=== PATIENT | female | born 1970 | race Caucasian/White ===

== ENCOUNTER 2023-08-19 09:10 | Outpatient (CLI) | payer BC, SELFPAY ==
[2023-08-19 17:00] LABS: Alanine Aminotransferase 21 U/L (6-35); Albumin Level 4.2 g/dL (3.5-5.1); Alkaline Phosphatase 88 U/L (38-126); Anion Gap 3 mmol/L (8-16); Aspartate Amino Transferase 29 U/L (14-36); Bilirubin,Total 0.5 mg/dL (0.2-1.3); Blood Urea Nitrogen 15 mg/dL (7-17); CRP < 0.5 mg/dL (<1.0); Calcium 9.4 mg/dL (8.4-10.2); Carbon Dioxide 31 mmol/L (22-30); Chloride 105 mmol/L (98-107); Cholesterol 279 mg/dL (0-200); Estimated Glomerular Filt Rate > 60; Glucose 90 mg/dL (65-110); HDL Direct 51 mg/dL; Potassium 4.3 mmol/L (3.4-5.0); Sodium 139 mmol/L (137-145); Triglycerides 138 mg/dL (<150)
[2023-08-19 17:09] LABS: LDL Cholesterol Direct 160 mg/dL
[2023-08-19 18:08] LABS: Erythrocyte Sedimentation Rate 15 mm/hr (0-20); Hemoglobin A1C 5.6 % (<5.7)
[2023-08-19 18:27] LABS: Rheumatoid Factor < 12.0 IU/ML (<12)
[2023-08-24 21:02] LABS: Anti Cyclic Citrullinated Pept <16 Units (<20)
== END 2023-08-19 09:11 | disposition home or self-care (01) ==
LOC: ANHGOSHLAB 09:12
PROVIDERS: PCP Emergency Medicine; Visit Provider Emergency Medicine
DX: E78.5 Hyperlipidemia, unspecified (principal); M25.50 Pain in unspecified joint; R73.03 Prediabetes
CPT/HCPCS: 36415; 80053; 80061; 83036; 85652; 86038; 86140; 86200; 86430

== ENCOUNTER 2023-12-26 13:37 | Outpatient (CLI) | payer BC, SELFPAY ==
--- NOTE | ~2023-12-26 | MM_ITS ---
EXAMINATION: MM screening [place] BI w anirudh HISTORY: Screening TECHNIQUE: Craniocaudal and mediolateral oblique 3-D tomosynthesis images were obtained and synthetic 2-D images were generated. CAD analysis was submitted and interpreted. COMPARISON: Comparison to multiple prior studies sequentially, with oldest reviewed study dated 08/30. BREAST PARENCHYMAL COMPOSITION: The breasts are heterogeneously dense, which may obscure small masses . FINDINGS: There is no evidence of suspicious mass, calcification, or architectural distortion to sugg est malignancy in either breast. There has been no suspicious interval change. IMPRESSION: 1. No mammographic evidence of malignancy. 2. Recommend routine screening mammography in one year. BI-RADS Category 1: Negative Reviewed, dictated and finalized at location A. FORMER OPERATOR
== END 2023-12-26 13:38 | disposition home or self-care (01) ==
LOC: ANHIMG 13:40
PROVIDERS: PCP Emergency Medicine; Visit Provider Emergency Medicine
DX: Z12.31 Encounter for screening mammogram for malignant neoplasm of breast (principal)
CPT/HCPCS: 77063; 77067

== ENCOUNTER 2024-09-25 10:15 | Outpatient (CLI) | payer BC, SELFPAY ==
[2024-09-25 20:11] LABS: Basophils Absolute Auto 0.1 K/mm3 (0.0-0.1); Basophils Percent Auto 1.1 % (0.2-1.2); Eosinophils Absolute Auto 0.1 K/mm3 (0-0.3); Eosinophils Percent Auto 2.3 % (0-4.4); Hematocrit 42.2 % (37.0-47.0); Immature Granulocyte Absolute 0.02 K/mm3 (0.00-0.031); Immature Granulocyte Percent A 0.4 % (0-0.5); Lymphocytes Absolute Auto 1.74 K/mm3 (0.9-3.2); Lymphocytes Percent Auto 33.3 % (18.3-44.2); Mean Corpuscular HGB Conc 30.8 g/dl (32-36); Mean Corpuscular Hemoglobin 27.7 pg (26-34); Mean Platelet Volume 9.8 fl (7.4-10.4); Monocytes Absolute Auto 0.4 K/mm3 (0.1-0.6); Monocytes Percent Auto 8.2 % (2.6-8.5); Neutrophils Absolute Auto 2.9 K/mm3 (1.3-6.7); Neutrophils Percent Auto 54.7 % (45.5-73.1); Platelet Count Result 344 k/mm3 (150-375); Red Blood Count 4.69 M/mm3 (4.2-5.4); White Blood Count 5.2 K/mm3 (4.5-10.0)
[2024-09-25 20:38] LABS: Alanine Aminotransferase 34 U/L (6-35); Albumin Level 4.4 g/dL (3.5-5.1); Alkaline Phosphatase 101 U/L (38-126); Anion Gap 8 mmol/L (4-12); Aspartate Amino Transferase 30 U/L (14-36); Bilirubin,Total 0.4 mg/dL (0.2-1.3); Blood Urea Nitrogen 14 mg/dL (7-17); Calcium 9.7 mg/dL (8.4-10.2); Carbon Dioxide 29 mmol/L (22-30); Chloride 105 mmol/L (98-107); Cholesterol 273 mg/dL (0-200); Estimated Glomerular Filt Rate > 60; Glucose 93 mg/dL (65-110); HDL Direct 59 mg/dL; Potassium 4.6 mmol/L (3.4-5.0); Sodium 142 mmol/L (137-145); Triglycerides 150 mg/dL (<150)
[2024-09-25 20:48] LABS: LDL Cholesterol Direct 152 mg/dL
== END 2024-09-25 10:16 | disposition home or self-care (01) ==
LOC: ANHGOSHLAB 10:17
PROVIDERS: PCP Emergency Medicine; Visit Provider Emergency Medicine
DX: E78.5 Hyperlipidemia, unspecified (principal); M25.541 Pain in joints of right hand; M25.542 Pain in joints of left hand
CPT/HCPCS: 36415; 80053; 80061; 85025

== ENCOUNTER 2024-09-28 09:18 | Outpatient (CLI) | payer BC, SELFPAY ==
[2024-09-28 14:22] LABS: Basophils Absolute Auto 0.1 K/mm3 (0.0-0.1); Basophils Percent Auto 0.9 % (0.2-1.2); Eosinophils Absolute Auto 0.1 K/mm3 (0-0.3); Eosinophils Percent Auto 2.5 % (0-4.4); Hematocrit 41.5 % (37.0-47.0); Immature Granulocyte Absolute 0.01 K/mm3 (0.00-0.031); Immature Granulocyte Percent A 0.2 % (0-0.5); Lymphocytes Absolute Auto 1.64 K/mm3 (0.9-3.2); Lymphocytes Percent Auto 29.4 % (18.3-44.2); Mean Corpuscular HGB Conc 31.3 g/dl (32-36); Mean Corpuscular Hemoglobin 28.3 pg (26-34); Mean Corpuscular Volume 90.2 fl (80-100); Mean Platelet Volume 9.9 fl (7.4-10.4); Monocytes Absolute Auto 0.4 K/mm3 (0.1-0.6); Monocytes Percent Auto 7.4 % (2.6-8.5); Neutrophils Absolute Auto 3.3 K/mm3 (1.3-6.7); Neutrophils Percent Auto 59.6 % (45.5-73.1); Platelet Count Result 334 k/mm3 (150-375); Red Cell Distribution Width 12.9 % (11.5-14.5); White Blood Count 5.6 K/mm3 (4.5-10.0)
[2024-09-28 14:54] LABS: Erythrocyte Sedimentation Rate 14 mm/hr (0-20)
[2024-09-28 15:08] LABS: Alanine Aminotransferase 24 U/L (6-35); Albumin Level 4.3 g/dL (3.5-5.1); Alkaline Phosphatase 105 U/L (38-126); Anion Gap 8 mmol/L (4-12); Aspartate Amino Transferase 36 U/L (14-36); Bilirubin,Total 0.3 mg/dL (0.2-1.3); Blood Urea Nitrogen 16 mg/dL (7-17); CRP < 0.5 mg/dL (<1.0); Calcium 9.6 mg/dL (8.4-10.2); Carbon Dioxide 28 mmol/L (22-30); Chloride 105 mmol/L (98-107); Estimated Glomerular Filt Rate > 60; Glucose 89 mg/dL (65-110); Potassium 4.6 mmol/L (3.4-5.0); Sodium 141 mmol/L (137-145)
[2024-09-28 15:11] LABS: Rheumatoid Factor < 12.0 IU/ML (<12)
[2024-10-01 18:08] LABS: HLA B27 NEGATIVE (NEGATIVE)
[2024-10-02 15:14] LABS: Cyclic Citrullinated Peptide <16 UNITS
== END 2024-09-28 09:19 | disposition home or self-care (01) ==
LOC: ANHGOSHLAB 09:22
PROVIDERS: PCP Emergency Medicine
DX: M06.4 Inflammatory polyarthropathy (principal)
CPT/HCPCS: 36415; 80053; 85025; 85652; 86038; 86039; 86140; 86200; 86225; 86430; 86812

== ENCOUNTER 2025-02-25 14:07 | Outpatient (CLI) | payer BC, SELFPAY ==
--- NOTE | ~2025-02-25 | MM_ITS ---
EXAMINATION: MM screening [place] BI w anirudh HISTORY: Screening mammogram TECHNIQUE: Craniocaudal and mediolateral oblique 3-D tomosynthesis images were obtained and synthetic 2-D images were generated. CAD analysis was submitted and interpreted. COMPARISON: 12/26/2023, 09/27/2022 BREAST PARENCHYMAL COMPOSITION:Not Dense. There are scattered areas of fibroglandular density. FINDINGS: Mass in the posterior, lower left breast is present with biopsy clip. No suspicious mass, c alcification, or architectural distortion are identified in either breast to suggest malignancy. Ther e has been no suspicious interval change. IMPRESSION: No mammographic evidence of malignancy. Recommend routine screening mammography in one year. BI-RADS Category 2: Benign finding(s). Reviewed, dictated and finalized at location .
--- OUTSIDE RECORDS SUMMARY | 2025-02-25 15:34 | XMS_ITS ---
Author Organization [place] [facility]. Address [address] [address] Care Team Providers Care Well Service Floor Worker Name Role Phone Cassandra JO, Karma Primary Care Provider Unavail MAGY Carpenter Unavailable [phone] Encounters Encounter Location Date Provider Diagnosis [facility] [address] [address] 12/09/2023 MAGY SANTACRUZ Plan Of Treatment No Information Progress Notes * TITUS DALEYDOB:1970 (54 yo F)Acc No.[id number]:12/09/2023 Patient: TITUS CALLES :1970 A ge:53 Y S ex:Female Address:[address] [facility] [place], [address] * * Date:
--- OUTSIDE RECORDS SUMMARY | 2025-02-25 15:34 | XMS_ITS | Patient Health Record ---
Author Organization [facility]. Address [address] [address] Care Team Providers Care Yarder Name Role Phone Cassandra JO, Karma Primary Care Provider Unavail able NEETA MAGY Unavailable [phone] Allergies No Known Allergies Reason For Referral No Information Medications Medication SIG (Take, Route, Frequency, Duration) Notes Start Date End Date Status Benadryl Allergy 25 MG 1 tablet at bedti me as needed Orally Once a day Active Tizanidine 2 mg one orally 1 at nigh t and as needed for 30 days Active Multivitamin - 1 tablet Orally Once a day Active Meloxicam 15 MG 1 tablet Oral Once a day Active Vitamin D3 125 MCG (5000 UT) 1 tablet Orally QOD Active Social History Tobacco Use: Social History Observation Description Date Details (start date - stop date) Never Smoker NA - NA Tobacco Use/Smoking Question Answer Notes Are you a nonsmoker Section Notes: h/o alcohol abuse, 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, 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, 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 Problems Problem Type SNOMED Code ICD Code Onset Dates Problem Status W/U Status Risk Notes Problem Paresthesia (78707197) Paresthesia (R20.2) Active confirmed Problem 632878183297 Anesthesia of skin (R20.0) Active confirmed Problem 89774601 Paresthesia of skin (R20.2) Active confirmed Problem 637478629 Imbalance (R26.89) Active confirmed Problem 18011768 Tremor (R25.1) Active confirmed Problem 800957046 Cervical spondylitis (M46.92) Active confirmed Problem 623889868 Cervical radicular pain (M54.12) Active confirmed Problem 01173578 Action tremor (G25.2) Active confirmed Problem Cervical arthritis (742969913) Cervical arthritis (M46.92) Active confirmed Plan Of Treatment Pending Test Test Name Order Date TSH, 3RD GENERATION W/REFLEX TO FT4 11/29 TSH, 3RD GENERATION W/REFLEX TO FT4 07/30 SED RATE BY MODIFIED TREYERGREN 08/21/20 VITAMIN B12 08/21/2022 VITAMIN B12 12/22/2022 physical therapy eval & tx 08/21/2022 CBC (INCLUDES DIFF/PLT) 12/22/2022 MRI Brain with and without contrast 07/30 MRI Cervical Spine wo contrast COMPREHENSIVE METABOLIC PANEL 12/22/2022 Insurance Providers Payer Name Payer Address Payer Phone Subscriber Number Group Number Insured Name Patient Relationship to Insured Coverage Start Date Coverage End Date Z DO NOT USE [employer] [address] [place] [address] [phone] [id number] DALEY Spouse - patient is the spouse of the insured Medical (General) History Surgical History Surgery Date(Month/Year) meniscus repair 08/2022
--- OUTSIDE RECORDS SUMMARY | 2025-02-25 15:34 | XMS_ITS | Patient Health Record ---
Author Organization [facility] Address [address] [place] [address] [address] [place] [address] Support Name Relationship Address Phone Ronel Walker Guarantor Unknown Unavailable Allergies No Known Allergies Reason For Referral No Information Medications Medication SIG (Take, Route, Frequency, Duration) Notes Start Date End Date Status Daily Value Multivitamin Oral 05/11/2022 Active Rosuvastatin Calcium 10 MG Oral 05/11/2022 Active [facility] Omeprazole Magnesium 20 MG Oral 05/11/2022 Active Slo Fe Oral *Reorder from Posterous for eRx and Interaction Alerts* 05/11/2022 Active Meloxicam 15 MG Oral 05/11/2022 Act neema Benadryl Allergy 25 MG Oral 05/11/2022 Active Plan Of Treatment No Information Insurance Providers Payer Name Payer Address Payer Phone Subscriber Number Group Number Insured Name Patient Relationship to Insured Coverage Start Date Coverage End Date Advoc [id number] [employer] [address] [place] [address] [id number] Yi Walker Other
== END 2025-02-25 14:08 | disposition home or self-care (01) ==
LOC: ANHIMG 14:09
PROVIDERS: PCP Nurse Practitioner Family; Visit Provider Family Medicine
DX: Z12.31 Encounter for screening mammogram for malignant neoplasm of breast (principal)
CPT/HCPCS: 77063; 77067

== ENCOUNTER 2025-08-29 08:07 | Outpatient (CLI) | payer BC, SELFPAY ==
[2025-08-29 13:01] LABS: Hematocrit 39.3 % (37.0-47.0); Hemoglobin 12.3 g/dL (12.0-15.0); Immature Granulocyte Percent A 0.2 % (0-0.5); Lymphocytes Absolute Auto 1.17 K/mm3 (0.9-3.2); Mean Corpuscular HGB Conc 31.3 g/dl (32-36); Mean Corpuscular Hemoglobin 30.8 pg (26-34); Mean Corpuscular Volume 98.5 fl (80-100); Nucleated Red Blood Cells Absolute Auto 0.000 K/mm3 (0.0-0.012); Nucleated Red Blood Cells Perc 0.0 % (0.0-0.2); Platelet Count Result 374 k/mm3 (150-375); Red Blood Count 3.99 M/mm3 (4.2-5.4); White Blood Count 4.4 K/mm3 (4.5-10.0)
[2025-08-29 13:13] LABS: Alanine Aminotransferase 34 U/L (6-35); Albumin Level 4.3 g/dL (3.5-5.1); Alkaline Phosphatase 83 U/L (38-126); Anion Gap 8 mmol/L (4-12); Aspartate Amino Transferase 45 U/L (14-36); Bilirubin,Total 0.2 mg/dL (0.2-1.3); Blood Urea Nitrogen 19 mg/dL (7-17); Calcium 9.5 mg/dL (8.4-10.2); Carbon Dioxide 27 mmol/L (22-30); Chloride 105 mmol/L (98-107); Cholesterol 293 mg/dL (0-200); Estimated Glomerular Filt Rate > 60; Glucose 79 mg/dL (65-110); HDL Direct 58 mg/dL; Potassium 4.0 mmol/L (3.4-5.0); Sodium 140 mmol/L (137-145); Total Protein 7.2 g/dL (6.3-8.2); Triglycerides 90 mg/dL (<150)
[2025-08-29 13:18] LABS: Add Urine Microscopic? YES; Appearance Urine Clear (Clear); Glucose Urine UA Negative (Negative); Iron 59 ug/dL (37-170); Leukocyte Esterase Ur 2+ LEU/UL (Negative); Need Manual Microscopic Reviewed; Nitrate Urine Negative (Negative); Non Pathogenic Casts 0-2; Specific Grav Ur 1.019 (1.001-1.035)
[2025-08-29 13:36] LABS: Percent Iron Saturation 23 % (20-50)
[2025-08-29 14:00] LABS: Thyroid Stimulating Hormone Reflex 2.400 uIU/mL (0.465-4.68)
[2025-08-29 14:11] LABS: Ferritin 71.00 ng/mL (11.1-264)
[2025-08-29 14:29] LABS: Vitamin B12 651.0 pg/mL (239-931)
[2025-08-29 17:55] LABS: Hemoglobin A1C 5.9 % (<5.7)
== END 2025-08-29 08:08 | disposition home or self-care (01) ==
LOC: ANHGOSHLAB 08:08
PROVIDERS: PCP Nurse Practitioner Family; Visit Provider Nurse Practitioner Family
DX: M06.00 Rheumatoid arthritis without rheumatoid factor, unspecified site (principal); E66.3 Overweight; Z13.1 Encounter for screening for diabetes mellitus; Z79.899 Other long term (current) drug therapy; R53.83 Other fatigue; Z13.220 Encounter for screening for lipoid disorders; E61.1 Iron deficiency; Z13.29 Encounter for screening for other suspected endocrine disorder; E53.8 Deficiency of other specified B group vitamins
CPT/HCPCS: 36415; 80053; 80061; 81001; 82306; 82607; 82728; 82746; 83036; 83540; 83550; 84443; 85025

== ENCOUNTER 2025-10-16 08:43 | Outpatient (CLI) | payer BC, SELFPAY ==
[2025-11-05 12:58] VITALS: BMI 26.9
--- NOTE | 2025-11-05 12:58 | WPDHOMESLEEP ---
Sleep Study - Home Unattended Date of Study: 10/16/25 Ordering Provider: Kurt Arias MD Interpreting Provider: Mansi Torres DO Home Sleep Study Type: Watch PAT Height: 1.68 m Weight: 75.75 kg Body Mass Index: 26.9 Neck Circumference (inches): 14.5 [place]: 1 Reason for Sleep Study Excessive daytime sleepiness Sleep History The patient is a 55-year-old female that had a sleep study ordered by her primary care physician for evaluation of sleep apnea. The patient admits to excessive daytime sleepiness. She denies snoring loudly. She denies having interruptions in breathing while asleep. She denies choking or gasping at night. She denies having trouble breathing on her back. She denies morning headaches. She denies having a dry or sore mouth / throat in the morning. She denies nocturnal heartburn. She denies nocturia. She does have difficulty falling and staying asleep. She does have difficulty returning to sleep if she wakes up throughout the night. She denies any hypnotic or sedative use. She denies feeling anxious about sleep. She does feel tired or sleepy during the day. She does feel tired in the morning. She denies having the urge to fall asleep during the day. She denies feeling drowsy while driving. She denies sleep paralysis, cataplexy and hypnagogic/ hypnopompic hallucinations. She does clench or grind her teeth. She denies kicking or jerking her legs excessively. She denies having a restless feeling in her legs. She goes to bed at 10:00 p.m. on work days and at 11:00 p.m. on her days off. It takes her 2 hours to fall asleep. She gets 5 hours of sleep per night. Her sleep is somewhat restorative on her days off. She denies taking any planned naps. She denies dream enactment behavior. She denies sleep walking. She consumes 3-4 cups of caffeinated beverage per day. She denies tobacco and alcohol use. She exercises 3-4 nights per week. [facility] Past Medical History Medical History Localized swelling of left foot Degenerative joint disease of right knee Encounter to establish care [facility] use of drug Encounter for annual routine gynecological examination Insomnia Motion sickness Arthralgia of hands, bilateral Joint pain Right knee meniscal tear Inflammatory polyarthropathy Breast cancer screening Screening mammogram for breast cancer Surgical History Surgical History H/O lateral meniscus repair of right knee Family History Family History Father Pulmonary embolism Social History Social History Smoking status: Former smoker Tobacco type: cigarettes Alcohol intake: never Substance use: never Current Housing: Decline to Answer Concerned About Future Housing: Decline to Answer Difficulty Paying Gas/Electric Bills: Decline to Answer Difficulty Paying for Meds: Decline to Answer Currently Unemployed: Decline to Answer Education: Decline to Answer Difficulty w/ Childcare or Family Care: Decline to Answer Medications Home Medications ?Medication ?Instructions ?Recorded ?Confirmed ?Type hydroxychloroquine 200 mg tablet 200 mg PO BID 10/23/25 10/23/25 History (Plaquenil) tizanidine 2 mg capsule 2 mg PO TID PRN 10/23/25 10/23/25 History Sleep Procedure The sleep study was completed using [employer] a technically adequate device with seven channels: peripheral arterial tone, actigraphy, body position, snore, respiratory movement, pulse oximetry, sleep staging, and heart rate. Prior to using the device, the patient received verbal and written instructions for its application and was provided with the help desk phone number for additional telephonic instruction with 24-hour availability of qualified personnel to answer questions. The study was scored using CMS guidelines. Sleep Architecture The total recording time is 8 hrs, 7 min. The total sleep time is 7 hrs, 3 min. Sleep latency is 17 minutes. REM latency is 121 minutes. The patient had 9 episodes of waking. Sleep architecture shows 6.7% deep sleep, 74.5% light sleep, and (as % Total Sleep Time) showed NREM (Light 74.5%; Deep 6.7%), and a 18.8% stage REM. The patient spent 55.9% of total sleep time in the supine position. Sleep efficiency was 86.86. Respiratory Analysis The overall AHI (pAHI 4%:) is 2.9. The overall AHI (pAHI 3%:) is 4.3. The central AHI is 0.2. The AHI was 4.4 in NREM and 3.8 in REM sleep. The AHI was 5.6 in Supine and 2.4 in Non-supine sleep. Percent of [place] respirations is 0.0. Oximetry Data The oxygen desaturation index (FRANKLIN 4%:) is 1.3. The mean saturation is 94%, and the lowest saturation is 87%. Time spent with saturation < 88% is 0.0 minutes. Snoring Profile Snoring average intensity is 40 dB. The patient snored above 45 decibels for 6.0 minutes, 1.4% of sleep time. Cardiac Profile The average pulse rate is 81 beats per minutes. The lowest pulse rate is 66 bpm. The highest pulse rate reported is 126 bpm. Atrial fibrillation was not detected. Premature beats occur <0.1 per minute. Assessment and Plan Assessment and Plan (1) Sleep disturbances: Code(s): G47.9 - Sleep disorder, unspecified Status: Acute Assessment and Plan: The patient had an overall AHI of 2.9 with desaturation down to 87%. This is not consistent with sleep-disordered breathing. If there are further concerns for a sleep disorder, I recommend that the patient have a split study with the use of a hypnotic to ensure we obtain enough sleep data. Data The data obtained during this sleep study is adequate for interpretation. Certification This sleep study has been reviewed by a board certified sleep medicine physician.
== END 2025-10-17 13:52 | disposition home or self-care (01) ==
PROVIDERS: PCP Nurse Practitioner Family; Visit Provider Family Medicine
DX: G47.10 Hypersomnia, unspecified (principal); G47.9 Sleep disorder, unspecified
CPT/HCPCS: 95800

== ENCOUNTER 2025-10-18 07:58 | Outpatient (CLI) | payer BC, SELFPAY ==
--- OUTSIDE RECORDS SUMMARY | 2025-10-18 08:01 | XMS_ITS | Patient Health Record ---
Author Organization [facility] Address [address] [place] [address] [address] [place] [address] Support Name Relationship Address Phone Ronel Walker Guarantor Unknown Unavailable Allergies No Known Allergies Reason For Referral No Information Medications Medication SIG (Take, Route, Frequency, Duration) Notes Start Date End Date Status Daily Value Multivitamin Oral 05/11/2022 Active Rosuvastatin Calcium 10 MG Oral 05/11/2022 Active [facility] Omeprazole Magnesium 20 MG Oral 05/11/2022 Active Slo Fe Oral *Reorder from Opiatalk for eRx and Interaction Alerts* 05/11/2022 Active Meloxicam 15 MG Oral 05/11/2022 Act neema Benadryl Allergy 25 MG Oral 05/11/2022 Active Plan Of Treatment No Information Insurance Providers Payer Name Payer Address Payer Phone Subscriber Number Group Number Insured Name Patient Relationship to Insured Coverage Start Date Coverage End Date Advoc [id number] [employer] [id number] [place] [address] [id number] Yi Walker Other
[2025-10-18 12:21] LABS: Hepatitis B Surface Antigen Negative (Negative)
[2025-10-18 12:26] LABS: HAV RESULT Negative (Negative); Hepatitis B Core IgM Result Negative (Negative)
[2025-10-18 12:45] LABS: Hepatitis B Surface Anti Res Positive
[2025-10-19 13:08] LABS: Anti-CCP Ab, IgG/IgA 7 units (0-19)
[2025-10-22 15:09] LABS: ANA by IFA Rfx Titer/Pattern Negative (.)
== END 2025-10-18 07:59 | disposition home or self-care (01) ==
PROVIDERS: Internal Medicine; PCP Nurse Practitioner Family; Visit Provider Nurse Practitioner Family
DX: R76.0 Raised antibody titer (principal)
CPT/HCPCS: 36415; 80074; 86038; 86200; 86430; 86480; 86706

== ENCOUNTER 2025-10-18 08:21 | Outpatient (CLI) | payer BC, SELFPAY ==
--- NOTE | ~2025-10-18 | XR_ITS ---
EXAMINATION: XR knee RT min 4V, 10/18/2025 8:38 PASTRY SOUS CHEF HISTORY: Pain in right knee, meniscus surgery 2021, rheumatoid a COMPARISON: No comparisons available. Findings: No acute fracture or malalignment. Moderate tricompartmental degenerative changes Soft tissues unremarkable. Impression: No acute fracture or malalignment. Reviewed, dictated and finalized at location P. RY SOUS CHEF Impression: No acute fracture or malalignment.
== END 2025-10-18 08:22 | disposition home or self-care (01) ==
LOC: GOSHIMG 08:22
PROVIDERS: PCP Nurse Practitioner Family; Visit Provider Nurse Practitioner Family
DX: M25.561 Pain in right knee (principal)
CPT/HCPCS: 73564

== ENCOUNTER 2025-10-18 08:23 | Outpatient (CLI) | payer BC, SELFPAY ==
--- NOTE | ~2025-10-18 | XR_ITS ---
EXAMINATION: XR sacroiliac joints min 3V, 10/18/2025 8:38 CORPORATE CONCIERGE HISTORY: raised antibody titer, looking for RA COMPARISON: No comparisons available. Findings: No acute fracture or malalignment. No significant sclerosis, no erosions or bridging osteophyte formation Soft tissues unremarkable. Impression: No acute fracture or malalignment. Reviewed, dictated and finalized at location P. ORATE CONCIERGE Impression: No acute fracture or malalignment.
--- NOTE | ~2025-10-18 | XR_ITS ---
XR_CERV2-3V_CR Indication: raised antibody titer, looking for RA Comparison: None Findings: The vertebral heights are intact. No fracture or subluxation. Moderate loss of disc height at C4-5 C5-6 and C6-7. Soft tissues unremarkable Impression: No acute abnormality. Reviewed, dictated and finalized at location P. E EPIDEMIOLOGIST Impression: No acute abnormality.
--- NOTE | ~2025-10-18 | XR_ITS ---
XR lumbar spine 2-3V Indication: raised antibody titer, looking for RA Comparison: None Findings: The vertebral heights are intact. No fracture or subluxation. Moderate loss of disc height at L4-5 and L5-S1 Soft tissues unremarkable Impression: No acute abnormality. Reviewed, dictated and finalized at location P. GER PORT Impression: No acute abnormality.
--- NOTE | ~2025-10-18 | XR_ITS ---
EXAMINATION: XR hand RT 2V, 10/18/2025 8:38 PHOTO MASK PATTERN GENERATOR HISTORY: raised antibody titer, looking for RA COMPARISON: No comparisons available. Findings: No acute fracture or malalignment. No significant degenerative changes. Soft tissues unremarkable. Impression: No acute fracture or malalignment. Reviewed, dictated and finalized at location P. O MASK PATTERN GENERATOR Impression: No acute fracture or malalignment.
--- NOTE | ~2025-10-18 | XR_ITS ---
EXAMINATION: XR foot RT 2V, 10/18/2025 8:38 CRIMINAL ATTORNEY HISTORY: raised antibody titer, looking for RA COMPARISON: No comparisons available. Findings: No acute fracture or malalignment. No significant degenerative changes. Soft tissues unremarkable. Impression: No acute fracture or malalignment. Reviewed, dictated and finalized at location P. INAL ATTORNEY Impression: No acute fracture or malalignment.
--- NOTE | ~2025-10-18 | XR_ITS ---
EXAMINATION: XR foot LT 2V, 10/18/2025 8:38 LAUNCHMAN HISTORY: raised antibody titer, looking for RA COMPARISON: No comparisons available. Findings: No acute fracture or malalignment. No significant degenerative changes. Soft tissues unremarkable. Impression: No acute fracture or malalignment. Reviewed, dictated and finalized at location P. CHMAN Impression: No acute fracture or malalignment.
--- NOTE | ~2025-10-18 | XR_ITS ---
EXAMINATION: XR hand LT 2V, 10/18/2025 8:38 SHIP'S CAPTAIN HISTORY: raised antibody titer, looking for RA COMPARISON: No comparisons available. Findings: No acute fracture or malalignment. No significant degenerative changes. Soft tissues unremarkable. Impression: No acute fracture or malalignment. Reviewed, dictated and finalized at location P. 'S CAPTAIN Impression: No acute fracture or malalignment.
== END 2025-10-18 08:24 | disposition home or self-care (01) ==
PROVIDERS: PCP Internal Medicine; Visit Provider Internal Medicine
DX: R76.0 Raised antibody titer (principal)
CPT/HCPCS: 72040; 72100; 72202; 73120; 73620

== ENCOUNTER 2025-10-23 09:52 | Outpatient (CLI) | payer BC, SELFPAY ==
--- NOTE | ~2025-10-23 | US_ITS ---
EXAMINATION: US soft tissue LE LT, 10/23/2025 10:06 SHOP TAILOR HISTORY: R22.42 - Localized swelling, mass and lump, left lower limb Comparison: None Technique: Dubose-scale and color Doppler images were obtained. Findings: Correlating with the palpable area within the subcutaneous tissues along the plantar aspect there is a complex focus measuring 10 x 4 x 11 mm, no increased flow. IMPRESSION: Nonspecific subcutaneous lesion possibly posttraumatic or postinfectious but incompletely evaluated. Contrast-enhanced MRI is suggested Reviewed, dictated and finalized at location P. TAILOR IMPRESSION: Nonspecific subcutaneous lesion possibly posttraumatic or postinfec tious but incompletely evaluated. Contrast-enhanced MRI is suggested
== END 2025-10-23 09:53 | disposition home or self-care (01) ==
PROVIDERS: PCP Nurse Practitioner Family; Visit Provider Nurse Practitioner Family
DX: R22.42 Localized swelling, mass and lump, left lower limb (principal)
CPT/HCPCS: 76882